=== PATIENT | female | born 1950 | race African-American/Black ===

== ENCOUNTER 2020-10-16 13:56 | Emergency (ER) | payer MEDICARE ==
[~2020-10-16] VITALS: Ht 162.6 cm; Wt 72.7 kg
[2020-10-16] MEDS ORDERED: OMEP20 PO (14:15)
[2020-10-16] MEDS ORDERED: OS500 PO (14:15)
[2020-10-16] MEDS ORDERED: METH-386 PO (14:15)
[2020-10-16] MEDS ORDERED: CHOL200016 PO (14:15)
[2020-10-16 15:37] LABS: BASOPHILS % (AUTO) 0.3 % (0.0-2.0); EOSINOPHILS % (AUTO) 0.3 % (1.0-6.0); HEMATOCRIT 37.7 % (36-46); HEMOGLOBIN 12.6 g/dL (12.0-16.0); LYMPHOCYTES # (AUTO) 1.3 K/uL (1.0-4.8); LYMPHOCYTES % (AUTO) 17.1 % (22.0-44.0); MEAN CORPUSCULAR HEMOGLOBIN 31.3 pg (26.0-34.0); MEAN CORPUSCULAR HGB CONC 33.4 G/dL (31.0-37.0); MEAN CORPUSCULAR VOLUME 94 fL (80-100); MONOCYTES # (AUTO) 0.8 K/uL (0.1-1.0); MONOCYTES % (AUTO) 10.4 % (2.0-9.0); NEUTROPHILS # (AUTO) 5.6 K/uL (1.8-7.7); NEUTROPHILS % (AUTO) 71.9 % (40.0-70.0); PLATELET COUNT (AUTO) 313 K/uL (150-450); RED BLOOD CELL COUNT(AUTO) 4.03 MIL/uL (4.00-5.20); RED CELL DISTRIBUTION WIDTH 13.1 % (11.5-14.5)
[2020-10-16 15:46] LABS: ANION GAP 10 mmol/L (8-16); CARBON DIOXIDE 27 mmol/L (22-29); CHLORIDE 102 mmol/L (98-107); CREATININE 0.84 mg/dL (0.60-1.30); GLUCOSE,RANDOM 111 mg/dL (70-110); POTASSIUM 3.5 mmol/L (3.5-5.1); SODIUM SERUM 139 mmol/L (136-145); UREA NITROGEN, BLOOD 7 mg/dL (7-18)
[2020-10-16 15:47] LABS: GLOMERULAR FILTR. RATE CALC > 60 mL/min (>60)
[2020-10-16 17:45] VITALS: BP 144/67
[2020-10-16] MEDS ORDERED: ACETAMINOPHEN 500 MG TABLET PO ONE (17:45)
== END 2020-10-16 18:04 | disposition home or self-care (01) ==
LOC: EMS 14:02
DX: R07.89 Other chest pain (principal); K21.9 Gastro-esophageal reflux disease without esophagitis; Z88.1 Allergy status to other antibiotic agents
CPT/HCPCS: 71045; 80048; 84484; 85025; 93005; 99285; 36415-L1; 36415-TC

== ENCOUNTER 2021-12-15 09:56 | Emergency (ER) | payer MEDICARE ==
[~2021-12-15] VITALS: Ht 167.6 cm; Wt 72.7 kg
[~2021-12-15 09:56] MED LIST: CHOL200059 PO; METH-386 PO; OMEP20 PO; OS500 PO
[2021-12-15 10:01] VITALS: BP 144/59
[2021-12-15 10:20] LABS: COVID AG,FIA SOURCE NASOPHARYNGEAL
[2021-12-15 10:56] LABS: INFLUENZA TYPE A NEGATIVE FOR TYPE A (NEGATIVE); INFLUENZA TYPE B NEGATIVE FOR TYPE B (NEGATIVE)
== END 2021-12-15 10:00 | disposition home or self-care (01) ==
LOC: EMS 09:57
DX: Z20.822 Contact with and (suspected) exposure to COVID-19 (principal); E05.90 Thyrotoxicosis, unspecified without thyrotoxic crisis or storm; Z87.19 Personal history of other diseases of the digestive system; Z86.79 Personal history of other diseases of the circulatory system; Z96.653 Presence of artificial knee joint, bilateral; Z98.890 Other specified postprocedural states; Z88.2 Allergy status to sulfonamides
CPT/HCPCS: 87426; 87804; 99283; C9803; U0003

== ENCOUNTER 2022-06-24 14:12 | Emergency (ER) | payer MEDICARE ==
[~2022-06-24] VITALS: Ht 162.6 cm; Wt 72.7 kg
[2022-06-24] MEDS ORDERED: OS500 PO (14:35)
[2022-06-24] MEDS ORDERED: SODIUM CHLORIDE 0.9% 100 ML ONE (16:20)
[2022-06-24] MEDS ORDERED: IOHEXOL 350 MG/ML 100 ML VIAL ONE (16:20)
[2022-06-24 16:21] LABS: BASOPHILS % (AUTO) 0.8 % (0.0-2.0); EOSINOPHILS % (AUTO) 1.3 % (1.0-6.0); HEMATOCRIT 39.2 % (36-46); HEMOGLOBIN 12.9 g/dL (12.0-16.0); LYMPHOCYTES # (AUTO) 1.6 K/uL (1.0-4.8); LYMPHOCYTES % (AUTO) 30.4 % (22.0-44.0); MEAN CORPUSCULAR HEMOGLOBIN 31.1 pg (26.0-34.0); MEAN CORPUSCULAR HGB CONC 32.8 G/dL (31.0-37.0); MEAN CORPUSCULAR VOLUME 95 fL (80-100); MONOCYTES # (AUTO) 0.5 K/uL (0.1-1.0); MONOCYTES % (AUTO) 9.1 % (2.0-9.0); NEUTROPHILS # (AUTO) 3.1 K/uL (1.8-7.7); NEUTROPHILS % (AUTO) 58.4 % (40.0-70.0); PLATELET COUNT (AUTO) 280 K/uL (150-450); RED BLOOD CELL COUNT(AUTO) 4.13 MIL/uL (4.00-5.20); RED CELL DISTRIBUTION WIDTH 13.9 % (11.5-14.5)
[2022-06-24 16:33] LABS: ANION GAP 8 mmol/L (8-16); CALCIUM, TOTAL 9.2 mg/dL (8.8-10.5); CARBON DIOXIDE 30 mmol/L (22-29); CHLORIDE 106 mmol/L (98-107); CREATININE 0.85 mg/dL (0.60-1.30); GLUCOSE,RANDOM 94 mg/dL (70-110); POTASSIUM 4.2 mmol/L (3.5-5.1); SODIUM SERUM 144 mmol/L (136-145); UREA NITROGEN, BLOOD 10 mg/dL (7-18)
[2022-06-24 16:34] LABS: GLOMERULAR FILTR. RATE CALC > 60 mL/min (>60)
[2022-06-24 16:38] LABS: ALANINE AMINOTRANSFERASE 18 U/L (12-78); ALBUMIN 3.8 g/dL (3.4-5.0); ALKALINE PHOSPHATASE 130 U/L (46-116); ASPARTATE AMINOTRANSFERASE 16 U/L (15-37); BILIRUBIN,TOTAL 0.3 mg/dL (0.1-1.0); LIPASE 106 U/L (73-393); PROTHROMBIN TIME 10.6 SEC (9.4-11.6)
[2022-06-24 16:41] LABS: APPEARANCE,URINE CLEAR (CLEAR); BILIRUBIN,URINE NEGATIVE (NEGATIVE); GLUCOSE, URINE (UA) NEGATIVE (NEGATIVE); KETONES,URINE NEGATIVE (NEGATIVE); LEUKOCYTE ESTERASE ,URINE NEGATIVE (NEGATIVE); NITRATE,URINE NEGATIVE (NEGATIVE); OCCULT BLOOD,URINE NEGATIVE (NEGATIVE); PROTEIN,URINE NEGATIVE (NEGATIVE); SPECIFIC GRAVITIY, URINE 1.011 (1.003-1.030); UROBILINOGEN,URINE <=1.0 mg/dL (<=1.0)
[2022-06-24 18:10] VITALS: BP 139/69
[2022-06-24] MEDS ORDERED: FAMO20 PO (19:41)
== END 2022-06-24 21:17 | disposition home or self-care (01) ==
LOC: EMS 15:02
DX: R10.30 Lower abdominal pain, unspecified (principal); E05.90 Thyrotoxicosis, unspecified without thyrotoxic crisis or storm; Z98.890 Other specified postprocedural states; Z96.659 Presence of unspecified artificial knee joint; Z88.2 Allergy status to sulfonamides
CPT/HCPCS: 99285; 74177; 71045; 80053; 81003; 82271; 83690; 84484; 85025; 85610; 85730; 86850; 86900; 86901; 36415; 93005; Q9967; J7050

== ENCOUNTER 2023-09-26 09:49 | Emergency (ER) | payer MEDICARE ==
[~2023-09-26] VITALS: Ht 162.6 cm; Wt 72.7 kg
[2023-09-26 09:48] VITALS: TEMP 98.2
[~2023-09-26 09:49] MED LIST changes: +FAMO20 PO; -OMEP20 PO
[2023-09-26] MEDS ORDERED: PANT40TA54 PO (09:50)
[2023-09-26 09:54] VITALS: BP 134/72; PULSE 86; RESP 16
[2023-09-26] MEDS ORDERED: ERYT3.5O8 OU (09:58)
== END 2023-09-26 10:10 | disposition home or self-care (01) ==
LOC: EMS 09:49
DX: H10.9 Unspecified conjunctivitis (principal); E05.90 Thyrotoxicosis, unspecified without thyrotoxic crisis or storm; Z96.659 Presence of unspecified artificial knee joint; Z98.890 Other specified postprocedural states; Z88.2 Allergy status to sulfonamides; Z88.8 Allergy status to other drugs, medicaments and biological substances
CPT/HCPCS: 99283; Z7502

== ENCOUNTER 2024-04-24 09:25 | Emergency (ER) | payer MEDICARE ==
[~2024-04-24] VITALS: Ht 165.1 cm; Wt 71.8 kg
[~2024-04-24 09:25] MED LIST changes: -CHOL200059 PO; +ERYT3.5O8 OU; -FAMO20 PO; +PANT40TA54 PO
[2024-04-24 09:37] VITALS: TEMP 98.6
[2024-04-24] MEDS ORDERED: METH-386 PO ×2 (09:43)
[2024-04-24] MEDS ORDERED: CHOL200074 PO (09:43)
[2024-04-24 09:56] LABS: APPEARANCE,URINE CLEAR (CLEAR); BILIRUBIN,URINE NEGATIVE (NEGATIVE); COLOR,URINE LIGHT YELLOW (YELLOW); GLUCOSE, URINE (UA) NEGATIVE (NEGATIVE); KETONES,URINE NEGATIVE (NEGATIVE); LEUKOCYTE ESTERASE ,URINE NEGATIVE (NEGATIVE); NITRATE,URINE NEGATIVE (NEGATIVE); OCCULT BLOOD,URINE TRACE (NEGATIVE); PH,URINE 5.5 (5.0-8.0); PROTEIN,URINE NEGATIVE (NEGATIVE); SPECIFIC GRAVITIY, URINE 1.015 (1.003-1.030); UROBILINOGEN,URINE <=1.0 mg/dL (<=1.0)
[2024-04-24 10:10] LABS: BACTERIA,URINE None Seen /HPF (None Seen); RBC,URINE 0-2 /HPF (0-2); SQUAMOUS EPITHELIAL CELL,UR Few /LPF (None Seen); WBC,URINE None Seen /HPF (0-5)
[2024-04-24] MEDS: SODIUM CHLORIDE 0.9% 1,000 ML IV ONE ×2 (10:29→11:22)
[2024-04-24] MEDS: MORPHINE SULFATE 4 MG/ML SYRINGE IVP ONE (10:29)
[2024-04-24] MEDS: ONDANSETRON HCL 4 MG/2 ML VIAL IVP ONE (10:29)
[2024-04-24 10:44] LABS: BASOPHILS % (AUTO) 0.6 % (0.0-2.0); EOSINOPHILS % (AUTO) 0.4 % (1.0-6.0); HEMOGLOBIN 12.7 g/dL (12.0-16.0); LYMPHOCYTES # (AUTO) 0.9 K/uL (1.0-4.8); LYMPHOCYTES % (AUTO) 9.8 % (22.0-44.0); MEAN CORPUSCULAR HEMOGLOBIN 31.3 pg (26.0-34.0); MEAN CORPUSCULAR HGB CONC 33.3 G/dL (31.0-37.0); MEAN CORPUSCULAR VOLUME 94 fL (80-100); MONOCYTES # (AUTO) 0.9 K/uL (0.1-1.0); MONOCYTES % (AUTO) 9.4 % (2.0-9.0); NEUTROPHILS # (AUTO) 7.4 K/uL (1.8-7.7); NEUTROPHILS % (AUTO) 79.8 % (40.0-70.0); PLATELET COUNT (AUTO) 338 K/uL (150-450); RED BLOOD CELL COUNT(AUTO) 4.05 MIL/uL (4.00-5.20); WHITE BLOOD COUNT (AUTO) 9.3 K/uL (4.5-11.0)
[2024-04-24 10:54] LABS: ANION GAP 10 mmol/L (8-16); CALCIUM, TOTAL 8.9 mg/dL (8.8-10.5); CARBON DIOXIDE 28 mmol/L (22-29); CHLORIDE 103 mmol/L (98-107); CREATININE 0.69 mg/dL (0.60-1.30); GLOMERULAR FILTR. RATE CALC > 60 mL/min (>60); GLUCOSE,RANDOM 111 mg/dL (70-110); POTASSIUM 3.9 mmol/L (3.5-5.1); SODIUM SERUM 141 mmol/L (136-145); UREA NITROGEN, BLOOD 8 mg/dL (7-18)
[2024-04-24 11:01] LABS: ALANINE AMINOTRANSFERASE 15 U/L (12-78); ALBUMIN 3.5 g/dL (3.4-5.0); ALKALINE PHOSPHATASE 134 U/L (46-116); ASPARTATE AMINOTRANSFERASE 14 U/L (15-37); BILIRUBIN,TOTAL 0.6 mg/dL (0.1-1.0); LIPASE 26 U/L (16-77); TOTAL PROTEIN, SERUM 8.3 g/dL (6.4-8.2); TROPONIN I-HIGH SENSITIVITY 5 ng/L (<51)
[2024-04-24 11:02] LABS: LACTIC ACID 0.8 mmol/L (0.4-2.0)
[2024-04-24] MEDS: HYDROmorphone HCL 2 MG/ML SYRINGE IVP ONE (11:22)
[2024-04-24 13:00] VITALS: BP 130/64; PULSE 75; RESP 18; O2SAT 99
== END 2024-04-24 14:16 | disposition short-term general hospital (02) ==
LOC: EMS 09:30
DX: R10.2 Pelvic and perineal pain (principal); K21.9 Gastro-esophageal reflux disease without esophagitis; Z86.73 Personal history of transient ischemic attack (TIA), and cerebral infarction without residual deficits; Z88.2 Allergy status to sulfonamides; Z79.899 Other long term (current) drug therapy
CPT/HCPCS: 99285; 74176; 96374; 96361; 96375; 71045; 80048; 80076; 81001; 83605; 83690; 84484; 85025; 36415; J1171; J2270; J2405; J7030

== ENCOUNTER 2025-02-28 11:39 | Emergency (ER) | payer MEDICARE ==
[~2025-02-28] VITALS: Ht 165.1 cm; Wt 68.2 kg
[~2025-02-28 11:39] MED LIST changes: +CHOL200074 PO; -ERYT3.5O8 OU
[2025-02-28 11:54] VITALS: TEMP 97.9
[2025-02-28] MEDS ORDERED: BISA-188 PO (11:58)
[2025-02-28] MEDS ORDERED: ACYC-428 PO (11:58)
[2025-02-28] MEDS ORDERED: POLY510P31 PO (11:58)
[2025-02-28 13:05] VITALS: BP 128/71; PULSE 77; RESP 18; O2SAT 99
[2025-02-28] MEDS: MAGNESIUM CITRATE [LEMON] 300 ML ORAL SOLUTION PO ONE (13:12)
== END 2025-02-28 13:55 | disposition home or self-care (01) ==
LOC: EMS 11:46
DX: K59.00 Constipation, unspecified (principal); K21.9 Gastro-esophageal reflux disease without esophagitis; Z86.73 Personal history of transient ischemic attack (TIA), and cerebral infarction without residual deficits; Z88.2 Allergy status to sulfonamides; Z96.653 Presence of artificial knee joint, bilateral
CPT/HCPCS: 99282; Z7502